=== PATIENT | female | born 1985 | race Caucasian/White ===

== ENCOUNTER 2016-02-13 02:44 | Emergency (ER) | payer OTHER ==
[~2016-02-13] VITALS: Ht 157.5 cm; Wt 84.6 kg
[~2016-02-13 02:44] MED LIST: ACET-1256 PO; DIAZ-165 PO; FLUD0.1T10 PO; FLUO20CA35 PO; GABA1CAP5 PO; LVNIS80; NRN600 PO; OXYC1TAB3 PO; PANT40TA PO; PRAZ1CAP10 PO; PROP80TA2 PO; QUET1TAB30 PO; TOPI25TA99 PO; VENL150C56 PO; WARF5TAB7 PO
[2016-02-13 02:54] VITALS: TEMP 36.7; Ht 157.5 cm; Wt 84.6 kg
--- NOTE | 2016-02-13 03:19 | EMERGENCY ROOM VISIT NOTE ---
History First contact with patient: 03:14 Chief Complaint: CHEST PAIN Stated Complaint: CHEST PAIN, PASSING OUT, WAS SEEN AT [place] Nursing Triage Summary: Pt states she was at [facility] for chest pain and weakness. Pt went by ambulance because she was unreponsive. Pt states her EKG was abnormal because showed an aortic arrhythmias. Pt was discharged and she feels that they did not treat her correctly because they wouldn't call a button bradder. She says they "threw me out of my room in just my gown like I was a piece of trash" Pt c/o loss of appetite, unable to drink anything, midsternal chest pain that radiates to her left shoulder blade and its causing her to be weak. Pt states that at home prior to ambulance arrival she was having pseudo siezures and her couldn't keep her awake. History of Present Illness The patient is a 30 year old female who presents to the Emergency Room with complaints of 2 day history of chest pain which commenced shortly after waking up yesterday. The chest pain is left-sided, with radiation through to left shoulder blade and down the left arm. Pain is described as a sharp, stabbing pain. It was intermittently present yesterday, but has become more constant today. Additionally, the pain has increased in severity and is currently rated as 9/ 10. Pain is associated with dyspnea and nausea (which has been longstanding x 2 months but worse in the last 2 days). She denies fevers, but has been having chills (with an apparent temperature of 95 degrees, measured at home). She claims no impact of chest pain with positional change, ambulation, or food intake. Has longstanding LLQ abdominal pain for which she see GI. Has had constipation x 4 days, no recent diarrhea, and no blood in stool. Denies given two surgeries done to result in a radical hysterectomy. Most recent surgery was in Dec 2015, after which patient developed clots. She is currently still on warfarin for this. No UTI symptoms Patient went to [facility] earlier in the evening via ambulance. EMS told her that she was in atrial fibrillation for approximately 1min en route. Upon arriving in [facility], the following workup was done: CBC, BMP, LFT, troponin, lipase, magnesium level, PT/INR, d-dimer, TSH repeat EKG, CXR, urinalysis, urine screen, Additionally, IV NSS, IV 4mg Zofran and IV 4mg morphine was administered. Results were reviewed: labs, urine and CXR were unremarkable. D-dimer and troponin were within normal limits, at <0.27 and < 0.021 respectively. Repeat EKG showed return to normal sinus rhythm. Patient was discharged with prescription for 24 hour Holter monitor. Review of Systems See HPI for pertinent positives and negatives. A total of ten systems were reviewed and were otherwise negative. Past Medical/Surgical History Medical Problems: (1) Anxiety (2) Appendectomy (3) Bipolar disorder (4) Cholecystectomy (5) Depression (6) Hysterectomy (7) Migraines Family History Cancer Diabetes mellitus Lung disease Social History Smoking Status: Never Smoker Drug Use: none Marital Status: Housing Status: lives with significant other Occupation Status: disabled Current/Historical Medications Scheduled Diazepam (Valium), 5 MG PO TID Fludrocortisone Acetate (Florinef), 0.1 MG PO BID Fluoxetine (Prozac), 60 MG PO DAILY Gabapentin (Neurontin), 400 MG PO QAM Gabapentin (Gabapentin), 1,200 MG PO HS Hydroxyzine Hcl (Atarax), 25 MG PO TID Pantoprazole (Protonix), 40 MG PO DAILY Prazosin Hcl (Prazosin), 1 MG PO HS Propranolol (Inderal), 40 MG PO BID Quetiapine Fumarate (Seroquel), 100 MG PO HS Topiramate (Topamax ), 75 MG PO BID Venlafaxine Hcl (Effexor Extended Rel), 150 MG PO DAILY Warfarin Sod (Jantoven), 5 MG PO DAILY Scheduled PRN Acetaminophen (Tylenol), 1,000 MG PO Q8 PRN for Pain Oxycodone Immediate Rel Tab (Roxicodone Ir), 1-2 TAB PO Q4H PRN for Severe Pain Allergies Coded Allergies: Ketorolac Tromethamine (Unverified Allergy, Intermediate, ITCHY, 02/13/16) Tramadol (Unverified Allergy, Intermediate, ITCHY, 02/13/16) Aripiprazole (Unverified Allergy, Unknown, interferes with heart meds, 02/12) Lamotrigine (Verified Allergy, Unknown, HIVES, 02/13/16) Ziprasidone (Unverified Allergy, Unknown, interferes with heart meds, 02/12) Physical Exam Vital Signs Date Time Temp Pulse Resp B/P Pulse Ox O2 Delivery O2 Flow Rate FiO2 02/13/16 02:54 36.7 86 20 118/91 99 Room Air Physical Exam GENERAL: alert, well appearing, thin, sitting in bed, no acute distress, non- toxic HEAD: Normocephalic, atraumatic. No sinus tenderness. EYES: PERRL, EOMI, normal conjunctiva OROPHARYNX: no exudate, no erythema, lips, buccal mucosa, and tongue normal and mucous membranes are moist NECK: supple, no nuchal rigidity, no adenopathy, non-tender LUNGS: Clear to auscultation. Normal chest wall mechanics, good air entry. No crepitations, crackles, or wheezes HEART: no murmurs, S1 normal and S2 normal CHEST: No reproducible tenderness. ABDOMEN: abdomen soft, non-tender, normo-active bowel sounds, no masses, no rebound or guarding. BACK: Back is symmetrical on inspection, no deformities, midline tenderness from previous lumbar puncture, as per patient, no CVA tenderness. SKIN: Warm, pink, dry. No erythema, rashes, or bruising. EXTREMITIES: Grossly normal. Moving all 4 limbs, strength 5/5. No pitting edema. Calves non tender. NEURO: Alert, Ox3. No focal deficits. Normal sensorium, cranial nerves II-XII grossly intact, normal speech. Medical Decision & Procedures Medications Administered Medications (Trade) Dose Ordered Sig/Ela Route Start Time Stop Time Status Last Admin Dose Admin Ondansetron HCl (Zofran Odt) 4 mg NOW STAT PO 02/13/16 03:48 02/13/16 03:50 DC 02/13/16 04:01 4 MG ECG Indication: chest pain, nausea Rate (beats per minute): 78 Rhythm: normal sinus Findings: no acute ischemic change, no ectopy Comparison ECG Date: October 05, 2015 Change: Flattened T waves laterally Medical Decision 30 year old female presented with chest pain The patient was evaluated in room A4. A complete history and physical exam was performed. Differential diagnoses includes but is not limited to acute coronary syndrome, myocardial infarction, pericarditis, pulmonary embolus, aortic dissection, pneumonia, pneumothorax, musculoskeletal, shingles, esophageal. Patient was given 4mg Zofran ODT for symptom relief. A repeat EKG showed NSR with lateral T wave fattening, but no indication of ischemia. POC troponin was performed and showed no elevation 7 hours after original labs were taken in [facility] It is possible that patient has paroxysmal atrial fibrillation. It is noted that patient is already on both Propranolol and warfarin. It was explained to the patient that her heart has returned to normal sinus rhythm. We advised that she proceed with 24 hour Holter monitoring and follow up with a button bradder on an outpatient basis. She is also recommended to follow up with PCP regarding depressed WBC count 2.8/hemoglobin 11.2/platelets 131, stating that a referral to hematology may be required. In the meantime, she is advised for conservative management with Tylenol or Motrin for pain relief and increased oral intake to improve hydration status. She may continue all her home medications. Patient understands and agreeable with care plan. Patient discharged home well. Departure Information Dispostion Home / Self-Care Condition GOOD Referrals Uri Lindsey DO (PCP) Patient Instructions [employer], [employer] [facility] [employer] Additional Instructions You were seen in the ED today for chest pain. Your records from [facility] show no indication of infection in the blood, normal kidney, liver, pancreas, thyroid levels, no elevation of cardiac enzymes or d-dimers, and a normal chest xray. The EKG done in [facility] and the repeat EKG done here both show normal sinus rhythm. We also repeated the cardiac enzyme test, and the troponin level remained within normal limits. *Upon discharge, we recommend proceeding with the 24 hour Holter monitoring and follow up with a button bradder on an outpatient basis. *Additionally, it was noted on your labs that you are pancytopenic, which means low cell counts (WBC count 2.8/hemoglobin 11.2/platelets 131). For this, follow up with PCP is strongly advised. You may need referral to HEMATOLOGY. *In the meantime conservative management of symptoms with Tylenol or Motrin for pain relief and increased oral intake of water to improve hydration status is encouraged. *Continue all home medications. You have been examined and treated today on an emergency basis only. This is not a substitute for, or an effort to provide, complete comprehensive medical care. It is impossible to recognize and treat all injuries or illnesses in a single emergency department visit. It is therefore important that you make a follow up with your physician for close monitoring. Return for worsening symptoms or if you develop fever, vomiting, or any other concerning symptoms, such persistent dizziness, vomiting, headache, fevers, chest pains, difficulty breathing, black or bloody stools, slurred speech, numbness, weakness, visual changes, or worsening of your condition.
[2016-02-13] MEDS ORDERED: ONDANSETRON 4MG OD TAB PO STA (03:48)
[2016-02-13] MEDS ORDERED: QUET1TAB34 PO (04:44)
[2016-02-13] MEDS ORDERED: HYDR-3124 PO (04:46)
--- NOTE | 2016-02-13 05:22 | EMERGENCY ROOM VISIT NOTE ---
ED Visit Note First contact with patient: 03:14 Resident Physician Supervision Note: I interviewed and examined the patient. Discussed with Dr. Sanchez and agree with findings and plan as documented in the note. I reviewed the case with the resident. We reviewed the laboratory studies performed this evening at [facility]. I spent a great of time talking to the patient and her about her situation. I voiced my concern for her significant pancytopenia which seems to have been worsening over the past couple of months. She explained that Dr. Lindsey her PCP had performed baseline laboratory testing but had sent the blood work for additional testing in [place]. I've encouraged the patient to follow-up with her PCP for possible referral to hematology with regards to this. As for the patient's chest pain, a second troponin was drawn here in the emergency department in compared to the one done at [place]. He remains negative. EKG shows no evidence of atrial fibrillation or cardiac ischemia. I instructed the patient to return to the emergency department if she develops a fever, worsening chest pain or shortness of breath, or vomiting. Otherwise, the patient will need to follow-up with Dr. Lindsey. The patient described to me extreme weakness to the point that her has to help her around. She describes having 4 children which makes it difficult for her to rest. She questioned whether or not she could be admitted into the hospital to have this workup completed. I explained that I had no reason for admission. Documented By: Selina Muniz
[2016-02-13 05:49] VITALS: BP 120/88; PULSE 77; O2SAT 97
== END 2016-02-13 05:55 | disposition home or self-care (01) ==
LOC: C.EDB 02:49 → C.EDA 05:55
DX: R07.9 Chest pain, unspecified (principal); Z90.89 Acquired absence of other organs; Z90.49 Acquired absence of other specified parts of digestive tract; Z90.710 Acquired absence of both cervix and uterus; Z80.9 Family history of malignant neoplasm, unspecified; Z83.3 Family history of diabetes mellitus; Z79.01 Long term (current) use of anticoagulants

== ENCOUNTER 2016-03-04 22:25 | Emergency (ER) | payer OTHER ==
[~2016-03-04] VITALS: Ht 157.5 cm; Wt 84.6 kg
[~2016-03-04 22:25] MED LIST changes: +HYDR-3124 PO; -LVNIS80; -QUET1TAB30 PO; +QUET1TAB34 PO
[2016-03-04 22:29] VITALS: TEMP 36.8; Ht 157.5 cm; Wt 84.6 kg
[2016-03-04] MEDS ORDERED: PRAZ2CAP3 PO (23:22)
[2016-03-04] MEDS ORDERED: ELET40TA PO (23:27)
[2016-03-04] MEDS ORDERED: PROP20TA67 PO (23:27)
[2016-03-04] MEDS ORDERED: VENL225T27 PO (23:27)
[2016-03-04] MEDS ORDERED: CYAN100T6 PO (23:27)
[2016-03-04] MEDS ORDERED: MAGN250T3 PO (23:28)
[2016-03-05 02:24] VITALS: BP 123/73; PULSE 70; O2SAT 98
--- NOTE | 2016-03-08 19:17 | EMERGENCY ROOM VISIT NOTE ---
History First contact with patient: 23:52 Chief Complaint: HEAD PAIN Stated Complaint: CONCUSSION,RINGING IN EARS,HEARING FADING History of Present Illness The patient is a 31 year old female who presents to the Emergency Room with complaints of head pain, dizziness, and vision changes over the past week. The patient reports that last weekend she had a fall, where she fell backwards, and struck her head. She states that she went to [facility] today and had an MRI performed. The patient states that her symptoms worsened in the past few hours , and she contacted her neurologist, who referred her back to the ER for further management. The patient does not have a new injury or trauma. No fever or chills. Her symptoms are essentially identical as they have been for the past week. She rates her discomfort a 10/10. Review of Systems More than 10 systems were reviewed and otherwise negative with the exception of history of present illness. Past Medical/Surgical History Medical Problems: (1) Anxiety (2) Appendectomy (3) Bipolar disorder (4) Cholecystectomy (5) Depression (6) Hysterectomy (7) Migraines Family History Cancer Diabetes mellitus Lung disease Social History Smoking Status: Never Smoker Drug Use: none Marital Status: Housing Status: lives with significant other Occupation Status: disabled Current/Historical Medications Scheduled Cyanocobalamin (Vitamin B12 100 Mcg), 100 MCG PO DAILY Diazepam (Valium), 5 MG PO TID Fludrocortisone Acetate (Florinef), 0.1 MG PO DAILY Fluoxetine (Prozac), 60 MG PO DAILY Gabapentin (Neurontin), 400 MG PO QAM Gabapentin (Gabapentin), 1,200 MG PO HS Hydroxyzine Hcl (Atarax), 25 MG PO TID Magnesium (Magnesium 250 mg), 1 TAB PO DAILY Pantoprazole (Protonix), 40 MG PO DAILY Prazosin Hcl (Prazosin), 2 MG PO HS Propranolol (Inderal), 20 MG PO DAILY Quetiapine Fumarate (Seroquel), 100 MG PO HS Topiramate (Topamax ), 75 MG PO BID Venlafaxine Hcl (Venlafaxine Hcl Er), 225 MG PO DAILY Warfarin Sod (Jantoven), 5 MG PO DAILY Scheduled PRN Eletriptan (Relpax), 40 MG PO DIRECTED PRN for Migraine Allergies Coded Allergies: Ketorolac Tromethamine (Unverified Allergy, Intermediate, ITCHY, 03/04/16) Tramadol (Unverified Allergy, Intermediate, ITCHY, 03/04/16) Aripiprazole (Unverified Allergy, Unknown, interferes with heart meds, ) Lamotrigine (Verified Allergy, Unknown, HIVES, 03/04/16) Ziprasidone (Unverified Allergy, Unknown, interferes with heart meds, ) Physical Exam Vital Signs Date Time Temp Pulse Resp B/P Pulse Ox O2 Delivery O2 Flow Rate FiO2 03/05/16 02:24 70 16 123/73 98 03/04/16 22:29 36.8 83 18 113/82 95 Room Air Pain Rating (0-10): 0 Physical Exam VITALS: Vitals are noted on the nurse's note and reviewed by myself. Vital signs stable. GENERAL: Well-developed, well-nourished, white female, who is in no acute distress and resting comfortably. Patient is cooperative with the examination. HEAD: Normocephalic atraumatic. EARS: External ear normal. External auditory canals clear, tympanic membranes pearly giron without erythema or effusion bilaterally. EYES: Pupils equal round and reactive to light and accommodation. Conjunctivae without injection, sclerae without icterus. Extraocular movements intact. NOSE: Patent, turbinates without inflammation or discharge. MOUTH: Mucous membranes moist. Tonsils are not enlarged. Pharynx without erythema, blood, or exudate. Uvula midline. Airway patent. NECK: Supple without nuchal rigidity. No lymphadenopathy. No thyromegaly. Cervical spine is nontender. HEART: Regular rate and rhythm without murmurs gallops or rubs. LUNGS: Clear to auscultation bilaterally without wheezes, rales or rhonchi. No retractions or accessory muscle use. ABDOMEN: Positive normal bowel sounds x 4. Soft, nontender, without masses or organomegaly. No guarding or rebound tenderness. MUSCULOSKELETAL: No muscle atrophy, erythema, or edema noted. Full range of motion without joint tenderness in all extremities. No tenderness to palpation. Normal gait. Strength 5/5 throughout. NEURO: Patient was alert and oriented to person place and time. CN II through XII grossly intact. Deep tendon reflexes 2+ throughout. No focal neurological deficits SKIN: The skin was without rashes, erythema, edema, or bruising. Capillary reflex less than 2 seconds. Medical Decision & Procedures ED Course Physical exam and history were performed. Nursing notes and EMR were reviewed. Patient appears to have persistent concussion symptoms after head injury about 7 days ago. On examination the patient does not have any deficit that I can appreciate. I did have the patient signed for her medical records release, and this was sent to [facility]. Unfortunately, [facility] does not have medical record staff available to send us hard copies of her reports at night. I was able to directly speak with the ER physician that took care of the patient at [facility]. Evidently the patient is very well-known to that facility, and typically presents for abdominal and back pain symptoms. Over the past 5 days she has had 2 CAT scans of her head, 2 CAT scans for neck, as well as blood work and MRI /MRA of her head and neck. The MRI imaging was only several hours ago, and was without acute findings. I had a lengthy discussion regarding her visit to the emergency department today. With a normal physical exam and normal MRI study only a few hours ago, I do not feel additional intervention is appropriate at this time. I'm not sure what the patient's expectation was for this visit, as she had to travel nearly one hour to get to this facility after being seen at a much closer facility earlier today. She has had multiple providers evaluate her for her complaints, and she likely has postconcussive symptoms. I will provide her resources for the [facility] concussion clinic. I recommend she follow with their care for further management. She was otherwise invited back to the ER with any new, worsening, or concerning symptoms. The chart was completed utilizing [employer] Speech Voice Recognition Software. Grammatical errors, random word insertions, pronoun errors, and incomplete sentences are an occasional consequence of this system due to software limitations, ambient noise, and hardware issues. Any formal questions or concerns about the content, text, or information contained within the body of this dictation should be directly addressed to the provider for clarification. . Medical Decision Differential diagnosis: Etiologies such as concussion, contusion, fracture, subdural hematoma, epidural hematoma, intraparenchymal hemorrhage, as well as other traumatic pathologies were entertained. Impression Primary Impression: Post-concussion syndrome Departure Information Dispostion Home / Self-Care Condition GOOD Forms HOME CARE DOCUMENTATION FORM, IMPORTANT VISIT INFORMATION Patient Instructions My [facility] Additional Instructions You were seen and evaluated today on an emergency basis only. This is not a substitute for, or an effort to provide, complete comprehensive medical care. It is not possible to recognize and treat all injuries or illnesses in a single emergency department visit. For this reason it is recommended that you followup with: [facility] [address] [facility] [id number] Call Monday to speak with a financial secretary. They will help make your appointment. You are welcome to return to the emergency department anytime with new, worsening, or concerning symptoms.
== END 2016-03-05 02:25 | disposition home or self-care (01) ==
LOC: C.EDB 22:26 → C.EDC 03-05 02:25
DX: F07.81 Postconcussional syndrome (principal); F31.9 Bipolar disorder, unspecified; F41.9 Anxiety disorder, unspecified; F32.9 Major depressive disorder, single episode, unspecified; G43.909 Migraine, unspecified, not intractable, without status migrainosus; Z83.3 Family history of diabetes mellitus

== ENCOUNTER 2016-04-02 13:55 | Emergency (ER) | payer OTHER ==
[~2016-04-02] VITALS: Ht 157.5 cm; Wt 87.0 kg
[~2016-04-02 13:55] MED LIST changes: -ACET-1256 PO; +CYAN100T6 PO; +ELET40TA PO; +MAGN250T3 PO; -OXYC1TAB3 PO; -PRAZ1CAP10 PO; +PRAZ2CAP3 PO; +PROP20TA67 PO; -PROP80TA2 PO; -VENL150C56 PO; +VENL225T27 PO
[2016-04-02 13:57] VITALS: TEMP 36.8; Ht 157.5 cm; Wt 87.0 kg
[2016-04-02] MEDS ORDERED: METHOCARBAMOL 100 MG/ML 10 ML VIAL IM ONE (15:00)
[2016-04-02] MEDS ORDERED: DIAZEPAM 5MG TAB PO ONE (16:00)
--- NOTE | 2016-04-02 17:09 | DIAGNOSTIC IMAGING REPORT ---
MRI CERVICAL WITHOUT CONTRAST CLINICAL HISTORY: Neck pain with left arm radiculopathy. TECHNIQUE: Sagittal and axial T1, T2 and STIR images were obtained. COMPARISON STUDY: No previous studies for comparison. There are no suspicious areas of marrow replacement. No intrinsic cervical cord lesions are visualized. C2-3: There is no evidence of disc bulge or focal herniation. There is no spinal or foraminal stenosis. C3-4: There is no evidence of disc bulge or focal herniation. There is no spinal or foraminal stenosis. C4-5: There are no disc bulges or focal herniations. There is no spinal or foraminal stenosis. C5-6 :There are no disc bulges or focal herniations. There is no spinal or foraminal stenosis. C6-7: There is no evidence of disc bulge or focal herniation. There is no evidence of spinal or foraminal stenosis. C7-T1: There is no evidence of disc bulge or focal herniation. There is no evidence of spinal or foraminal stenosis. IMPRESSION:Normal study Electronically signed by: Yomi Addison M.D. 04/02/2016 5:08 PM Dictated Date/Time: 04/02/2016 5:05 PM
--- NOTE | 2016-04-02 17:23 | EMERGENCY ROOM VISIT NOTE ---
ED Visit Note First contact with patient: 14:14 Chief Complaint: Neck pain. History of Present Illness: Ms. iDnh is a 31-year-old white female who ambulates into the ED accompanied by her complaining of left-sided neck pain. Patient denies any previous significant neck diseases or surgeries. She does report earlier last week she had a "nerve study"performed on the right side of the neck. She reports she did not receive a formal reading of that test but was told it was abnormal. Patient reports last evening, approximately 20 hours ago she started developing left neck pain. Since that time her pain has been constant and gradually increasing in intensity. She describes her pain as a sharp sensation. She places her discomfort at the C3 area. The pain is radiating down throughout the cervical and thoracic spine and laterally to the shoulder and down the left arm. She rates her discomfort 8/10. Her pain worsens with palpation. She has not identified any alleviating factors related to the pain. She has been taking her prescribed Valium and acetaminophen/hydrocodone without relief of her discomfort. She denies any associated fevers, chills, sweats, headaches, recent neck trauma, upper respiratory tract symptoms, neck stiffness, chest pain , shortness of breath, extremity weakness/numbness/tingling. Review of Systems: As noted above in history of present illness. All body systems were reviewed and found to be negative as noted above. Past Medical History: Heart disease, unspecified stomach disorder, gallbladder disease, pulmonary embolism, kidney stones, depression, anxiety, PTSD, bipolar disorder, migraine headaches, pseudoseizures, status post cholecystectomy, hysterectomy, appendectomy and section. Current Medications: Medications Dose Route/Sig Max Daily Dose Days Date Category Dose Instructions Magnesium 250 mg (Magnesium) Unknown Strength Tab 1 Tab PO DAILY 03/04/16 Reported MAGNESIUM COMPLEX Relpax (Eletriptan) 40 Mg Tab 40 Mg PO DIRECTED PRN 03/04/16 Reported Vitamin B12 100 Mcg (Cyanocobalamin) 100 Mcg Tab 100 Mcg PO DAILY 03/04/16 Reported Inderal (Propranolol HCl) 20 Mg Tab 20 Mg PO DAILY 03/04/16 Reported Venlafaxine Hcl Er (Venlafaxine Hcl) 225 Mg Tab 225 Mg PO DAILY 03/04/16 Reported Prazosin (Prazosin HCl) 2 Mg Cap 2 Mg PO HS 03/04/16 Reported Atarax (Hydroxyzine Hcl) 25 Mg Tab 25 Mg PO TID 02/13/16 Reported Seroquel (Quetiapine Fumarate) 100 Mg Tab 100 Mg PO HS 02/13/16 Reported Gabapentin 600 Mg Tab 1,200 Mg PO HS 02/02/16 Reported Neurontin (Gabapentin) 400 Mg Cap 400 Mg PO QAM 02/02/16 Reported Prozac (Fluoxetine HCl) 20 Mg Cap 60 Mg PO DAILY 02/02/16 Reported Jantoven (Warfarin Sodium) 5 Mg Tab 5 Mg PO DAILY 02/02/16 Reported Protonix (Pantoprazole Sodium) 40 Mg Tab 40 Mg PO DAILY 11/21/15 Reported Valium (Diazepam) 5 Mg Tab 5 Mg PO TID 11/21/15 Reported Topamax (Topiramate) 25 Mg Tab 75 Mg PO BID 10/09/15 Reported Florinef (Fludrocortisone Acetate) 0.1 Mg Tab 0.1 Mg PO DAILY 10/05/15 Reported Allergies to Medications: Aripiprazole, tramadol, Toradol, Lamotrigine, Ziprasidone. Social History: Patient is not employed; she lives with her boyfriend and children; she feels safe in her home environment; she denies tobacco and alcohol use. Physical Examination: Vital Signs: Date Time Temp Pulse Resp B/P Pulse Ox O2 Delivery O2 Flow Rate FiO2 04/02/16 13:57 36.8 92 16 112/76 98 Room Air GENERAL: 31-year-old female in mild distress due to pain, nontoxic-appearing, afebrile and hemodynamically stable. NEUROLOGICAL: Awake, alert and oriented to person, place and time. Answering questions appropriately and following commands. Normal gait. Good hand eye coordination. SKIN: Warm, dry and pink. No soft tissue eruptions or trauma noted. HEENT: Atraumatic and normocephalic. BACK: Moderate tenderness over the left side of the cervical spine starting at the level of C3 to the level of T6 over the left lateral vertebral prominences as well as throughout her trapezius muscles. I did not appreciate any muscle spasm. There was no bony deformity, bony crepitus, swelling or ecchymosis. Full range of motion of the cervical spine. THORAX: Lungs sounds are clear to auscultation and equal bilaterally with symmetrical chest wall. ABDOMEN: Flat, soft and nontender. Positive bowel sounds in all quadrants. No guarding, rigidity or organomegaly. UPPER EXTREMITIES: Patient does have full range of motion in all movements of the shoulder, elbow and wrist bilaterally. I attempted to do muscle strength testing which was unsuccessful because of no effort. Throughout the extremities and was warm and pink and capillary refill is brisk. She is able to distinguish light sensations through all dermatomes of the upper extremity. ED Course: Patient is assessed as noted above. Patient's case was reviewed with Dr. Robertson, patient's neurologist; she felt the patient would benefit from an MRI of her cervical spine and recommended muscle relaxants and possible NSAIDs for her symptoms. Patient was given 5 mg of Valium by mouth for her complaints of MRI claustrophobia and pain. Cervical spine MRI pending. Patient's care was transferred to Dr. Muniz pending MRI for final disposition and plan. Disposition and Plan: Please see Dr. Muniz's notes and orders.
[2016-04-02 17:56] VITALS: BP 115/74; PULSE 91; O2SAT 96
--- NOTE | 2016-04-02 18:10 | EMERGENCY ROOM VISIT NOTE ---
ED Visit Note First contact with patient: 17:51 This case was signed out to me at change of shift awaiting results of an MRI of the cervical spine. MRI CERVICAL WITHOUT CONTRAST CLINICAL HISTORY: Neck pain with left arm radiculopathy. TECHNIQUE: Sagittal and axial T1, T2 and STIR images were obtained. COMPARISON STUDY: No previous studies for comparison. There are no suspicious areas of marrow replacement. No intrinsic cervical cord lesions are visualized. C2-3: There is no evidence of disc bulge or focal herniation. There is no spinal or foraminal stenosis. C3-4: There is no evidence of disc bulge or focal herniation. There is no spinal or foraminal stenosis. C4-5: There are no disc bulges or focal herniations. There is no spinal or foraminal stenosis. C5-6 :There are no disc bulges or focal herniations. There is no spinal or foraminal stenosis. C6-7: There is no evidence of disc bulge or focal herniation. There is no evidence of spinal or foraminal stenosis. C7-T1: There is no evidence of disc bulge or focal herniation. There is no evidence of spinal or foraminal stenosis. IMPRESSION:Normal study I reviewed these findings with the patient. She has an appointment scheduled with her neurologist [place] for Dr. Miranda on Monday. She was encouraged to use Tylenol for pain and Valium as a muscle relaxant. Electronically signed by: Yomi Addison M.D. 04/02/2016 5:08 PM Dictated Date/Time: 04/02/2016 5:05 PM
== END 2016-04-02 18:22 | disposition home or self-care (01) ==
LOC: C.EDB 13:57 → C.EDD 18:22
DX: M54.2 Cervicalgia (principal); F31.9 Bipolar disorder, unspecified; Z86.711 Personal history of pulmonary embolism; Z79.01 Long term (current) use of anticoagulants; Z79.899 Other long term (current) drug therapy